=== PATIENT | female | born 1955 | race Two or more races ===

== ENCOUNTER 2017-01-19 11:20 | Outpatient (CLI) | payer OTHER | END 2017-01-19 13:20 | disposition home or self-care (01) | LOC: ECT 11:20 | DX: F31.4 Bipolar disorder, current episode depressed, severe, without psychotic features (principal); N18.3 Chronic kidney disease, stage 3 (moderate); E78.5 Hyperlipidemia, unspecified; Z90.710 Acquired absence of both cervix and uterus; E03.9 Hypothyroidism, unspecified ==